=== PATIENT | male | born 1995 | race Caucasian/White ===

== ENCOUNTER 2018-05-29 11:48 | Emergency (ER) | payer OTHER ==
--- NOTE | 2018-05-29 12:01 | PDOC ---
History of Present Illness - General Chief Complaint: Shortness of Breath Stated Complaint: ALLERGIC REACTION Time Seen by Provider: 05/29/18 11:58 History Source: Patient Exam Limitations: No Limitations - History of Present Illness Initial Comments: 05/29/18 12:19 This is a 22 YOM with h/o multiple prior allergic reactions (to peanuts, chickpeas, and many other foods) who p/w periorbital swelling which started this morning about 11 am, 15 minutes after drinking a whey protein shake that he had never drank before. He additionally notes that shortly after the onset, he had SOB but this resolved 20 minutes prior to my evaluation. He also had minimal lightheadedness at the onset of symptoms but this quickly resolved. The patient notes that he has an EpiPen at home as well as Benadryl, but he was out of the home and did not have access to these at the onset. He denies any n/v/d, numbness, tingling, focal weakness, throat closing sensation, current headache or lightheadedness, rash, pruritis, or other symptoms. He has had about 20 allergic reactions in the past and this is a milder one on his spectrum. He has never needed to be intubated and has only needed to be brought to the ED one time previously, years ago. He usually takes Benadryl at home with resolution. Past History - Past Medical History Allergies/Adverse Reactions: Allergies Allergy/AdvReac Type Severity Reaction Status Date / Time Penicillins AdvReac Intermediate Difficulty Verified 05/29/18 12:06 Breathing PEANUTS Allergy Severe Difficulty Uncoded 05/29/18 12:06 Breathing CHICK PEAS Allergy Intermediate Difficulty Uncoded 05/29/18 12:06 Breathing Review of Systems - Review of Systems Able to Perform ROS?: Yes Constitutional: No: Chills, Fever, Unexplained wgt Loss HEENTM: Yes: Other (eyelid swelling). No: Nose Congestion, Throat Pain Respiratory: Yes: Shortness of Breath (resolved). No: Cough, Wheezing Cardiac (ROS): Yes: Lightheadedness (resolved). No: Chest Pain, Palpitations ABD/GI: No: Constipated, Diarrhea, Nausea, Vomiting : No: Burning, Dysuria Musculoskeletal: No: Back Pain, Neck Pain Integumentary: No: Bruising, Rash Neurological: No: Headache, Numbness, Tingling, Weakness, Dizziness Endocrine: No: Unexplained Weight Gain, Unexplained Weight Loss *Physical Exam - Physical Exam General Appearance: Yes: Nourished, Appropriately Dressed, Other (awake, alert, oriented, answering appropriately, obvious periorbital swelling). No: Apparent Distress HEENT: positive: EOMI, LUCHO, Normal Voice, Hearing Grossly Normal, Other (mild periorbital swelling bilaterally superiorly and inferiorly). negative: Scleral Icterus (R), Scleral Icterus (L), Nasal Congestion Neck: positive: Trachea midline, Supple. negative: Tender, Rigid Respiratory/Chest: positive: Lungs Clear, Normal Breath Sounds. negative: Respiratory Distress, Crackles, Rhonchi, Stridor, Wheezing Cardiovascular: positive: Regular Rhythm, S1, S2, Bradycardia. negative: JVD, Murmur Gastrointestinal/Abdominal: positive: Normal Bowel Sounds, Flat, Soft. negative : Tender, Organomegaly, Pulsatile Mass, Guarding Musculoskeletal: positive: Normal Inspection. negative: Decreased Range of Motion, Vertebral Tenderness Extremity: positive: Normal Capillary Refill, Normal Inspection, Normal Range of Motion. negative: Tender, Cyanosis Integumentary: positive: Normal Color, Dry, Warm. negative: Erythema, Hives, Rash, Bruising Neurologic: positive: composite mechanic II-XII NML intact (grossly), Fully Oriented, Alert, Normal Mood/Affect, Normal Response, Motor Strength 5/5 Medical Decision Making - Medical Decision Making 05/29/18 12:38 Pt p/w apparent allergic reaction. Initial Vital Signs Temp Pulse Resp BP Pulse Ox 98.4 F 68 18 119/71 96 05/29/18 11:57 05/29/18 11:57 05/29/18 11:57 05/29/18 11:57 05/29/18 11:57 Exam: As noted in Physical Exam section. DDX IBNLT: allergic rxn/angioedema, anaphylaxis, contact dermatitis, [employer], RPA, laryngitis, tracheitis, tonsillitis esophagitis, etc. W/U ordered: None TX ordered: Benadryl PO (Pt refuses other meds at this time) Reassessment: Patient feels much improved, repeat heart/lung/skin exam unchanged except improving periorbital edema. Vital Signs Temperature 97.9 F 05/29/18 13:24 Pulse Rate 50 L 05/29/18 13:24 Respiratory Rate 18 05/29/18 13:24 Blood Pressure 136/54 05/29/18 13:24 O2 Sat by Pulse Oximetry (%) 99 05/29/18 13:24 DISCHARGE The Pt has gotten significant relief of symptoms with ED medications. Workup is not concerning for emergency-level pathology at this time. I am not concerned for anaphylaxis or life-threatening angioedema or other reaction. The Pt is appropriate for discharge with close outpatient follow up. They are comfortable with this plan and will follow up with their PCP in 1-3 days. They have an EpiPen and Benadryl at home and are counseled to keep these on their person at all times. Specific return precautions are discussed and they will come back to the ER if necessary. *DC/Admit/Observation/Transfer Diagnosis at time of Disposition: Allergic reaction Qualifiers: Encounter type: initial encounter Qualified Code(s): T78.40XA - Allergy, unspecified, initial encounter - Discharge Dispostion Disposition: HOME Condition at time of disposition: Stable Decision to Admit order: No - Referrals - Patient Instructions Additional Instructions: You were seen in the ER for an allergic reaction. We did an exam and gave you medications to control your symptoms, which improved while you were here in the ER. After our assessment, we do not believe you are having a medical emergency at this time, and we believe you are safe to go home. Please keep your EpiPen with you at all times, which you should take only if you get throat closing sensation, difficulty breathing, lip swelling, vomiting, or other signs of severe allergic reaction. Please also keep Benadryl with you at all times. Please follow up with your regular PCP in 1-3 days. Call their clinic, tell them you were seen in the ER, and tell them you need a follow-up. If you have any new or worsening symptoms, especially increasing pain and redness to the area or other signs of infection like fever), please come back to the ER at any time (24 hours a day). If you are having severe or life threatening symptoms, or symptoms that make it unsafe to drive or have someone drive you, please call 911. - Post Discharge Activity
[2018-05-29 12:03] VITALS: BMI 30.4
[2018-05-29] MEDS ORDERED: diphenhydrAMINE HCL 25 MG CAPSULE (FP) PO ONE ×2 (12:09→12:19)
[2018-05-29] MEDS ORDERED: RANITIDINE HCL 150 MG TABLET (FP) PO ONE (12:09)
--- NOTE | 2018-05-29 12:40 | PDOC ---
Attending Attestation - HPI HPI: 05/29/18 13:07 The patient is a 22 year old male with a significant past medical history of multiple allergic reactions who presents to the ER with an allergic reaction approximately 20 minutes after taking a whey protein shake. Patient reports he has never had this protein shake before. Patient noticed significant periorbital swelling prompting him to come to the ER for PO benadryl. Patient is also complaining of mild shortness of breath and dizziness which have resolved on its own. Patient states he has had allergic reactions in the past that typically resolve after PO benadryl and epipen, but he did not have them with him today. The patient denies chest pain, shortness of breath, headache, and dizziness. Denies fever, chills, nausea, vomit, diarrhea, and constipation. Denies dysuria, frequency, urgency, and hematuria. Allergies: NKA Past surgical history: None reported. Social history: No reported alcohol, drug, or cigarette use. <Savannah eBnton - Last Filed: 05/29/18 13:07> - Resident Resident Name: Jennifer Gibbons - ED Attending Attestation I have performed the following: I have examined & evaluated the patient, The case was reviewed & discussed with the resident, I agree w/resident's findings & plan, Exceptions are as noted - Physicial Exam PE: GENERAL: Awake, alert, and fully oriented, in no acute distress HEAD: No signs of trauma EYES: PERRLA, EOMI, sclera anicteric, conjunctiva clear. +Mild periorbital edema. ENT: Auricles normal inspection, hearing grossly normal, nares patent, oropharynx clear without exudates. Moist mucosa. Airway patent. NECK: Normal ROM, supple, no lymphadenopathy, JVD, or masses LUNGS: Breath sounds equal, clear to auscultation bilaterally. No wheezes, and no crackles. Speaking full sentences. HEART: Regular rate and rhythm, normal S1 and S2, no murmurs, rubs or gallops ABDOMEN: Soft, nontender, normoactive bowel sounds. No guarding, no rebound. No masses EXTREMITIES: Normal range of motion, no edema. No clubbing or cyanosis. No cords, erythema, or tenderness NEUROLOGICAL: Cranial nerves II through XII grossly intact. Normal speech, normal gait SKIN: Warm, Dry, normal turgor, no rashes or lesions noted. - Medical Decision Making Pt with history of food allergies, presents with allergic reaction after having a protein shake. We recommended obs in ED as he had respiratory symptoms, however, he refused ED obs. Observed for 1.5 hrs in ED, no airway symptoms ( symptoms resolved prior to arrival). Declined steroids. <Pam Garcia - Last Filed: 05/29/18 17:06>
[2018-05-29 13:25] VITALS: BP 136/54; PULSE 50; TEMP 97.9
== END 2018-05-29 13:24 | disposition home or self-care (01) ==
LOC: JER 11:48
DX: T78.40XA Allergy, unspecified, initial encounter (principal); Z88.0 Allergy status to penicillin; Z91.010 Allergy to peanuts; Z91.018 Allergy to other foods
CPT/HCPCS: 99283-25

== ENCOUNTER 2020-09-19 15:57 | Emergency (ER) | payer OTHER ==
[2020-09-19 16:10] VITALS: BP 130/82; PULSE 87; TEMP 99.2; BMI 30.5
[2020-09-19] MEDS ORDERED: ACETAMINOPHEN 325 MG TABLET (FP) PO ONE (16:45)
[2020-09-19] MEDS ORDERED: ACETAMINOPHEN 325 MG TABLET (FP) ONE (16:58)
[2020-09-19] MEDS ORDERED: traMADol HCL 50 MG TABLET PO ONE (17:38)
[2020-09-19] MEDS ORDERED: traMADol HCL 50 MG TABLET ONE (17:57)
== END 2020-09-19 18:42 | disposition home or self-care (01) ==
LOC: FER 15:57
DX: S02.2XXA Fracture of nasal bones, initial encounter for closed fracture (principal); S02.85XA Fracture of orbit, unspecified, initial encounter for closed fracture; Y04.0XXA Assault by unarmed brawl or fight, initial encounter
CPT/HCPCS: 70450-TC; 70486-TC; 99285-25

== ENCOUNTER 2020-12-19 18:21 | Inpatient (IN) | payer OTHER ==
[2020-12-19 18:40] VITALS: BMI 32.8
[2020-12-19] MEDS ORDERED: hydrOXYzine PAMOATE 25 MG CAPSULE (FP) PO PRN (19:40)
[2020-12-19] MEDS ORDERED: MAGNESIUM HYDROX 2400MG/30ML ORAL SUSPENSION 30 ML CUP PO PRN (19:40)
[2020-12-19] MEDS ORDERED: ACETAMINOPHEN 325 MG TABLET (FP) PO PRN ×2 (19:40)
[2020-12-19] MEDS ORDERED: MENTHOL/PHENOL 1 EACH UD MM PRN (19:40)
[2020-12-19] MEDS ORDERED: MAGNESIUM CITRATE 300 ML BOTTLE PO PRN (19:40)
[2020-12-19] MEDS ORDERED: DICYCLOMINE HCL 10 MG CAPSULE PO PRN (19:40)
[2020-12-19] MEDS ORDERED: BISMUTH SUBSALICYLATE 524 MG/30 ML UD PO PRN (19:40)
[2020-12-19] MEDS ORDERED: IBUPROFEN 400 MG TABLET (FP) PO PRN (19:40)
[2020-12-19] MEDS ORDERED: P-EPHED 60MG/TRIPROLIDI 2.5MG TABLET PO PRN (19:40)
[2020-12-19] MEDS ORDERED: NICOTINE POLACRILEX 2 MG GUM BUC PRN (19:40)
[2020-12-19] MEDS ORDERED: ONDANSETRON *ODT* 4 MG TABLET SL PRN (19:40)
[2020-12-19] MEDS ORDERED: MAG HYDROX/AL HYDROX/SIMETH 30 ML UNIT-DOSE CUP PO PRN (19:40)
[2020-12-19] MEDS ORDERED: METHOCARBAMOL 500 MG TABLET PO PRN (19:40)
[2020-12-19] MEDS ORDERED: cloNIDine HCL 0.1 MG TABLET PO PRN (19:46)
[2020-12-19] MEDS ORDERED: diphenhydrAMINE HCL 25 MG CAPSULE (FP) PO ONE (19:47)
[2020-12-19] MEDS ORDERED: THIAMINE HCL 100 MG TABLET (FP) PO SCH (22:00)
[2020-12-19] MEDS ORDERED: MELATONIN 5 MG TABLETS PO SCH (22:00)
[2020-12-20] MEDS ORDERED: PRENATAL VITAMINS W/ FOLIC ACID TABLET (FP) PO SCH (10:00)
[2020-12-20 10:49] LABS: HEMATOCRIT 33.7 % (35.4-49); HEMOGLOBIN 11.4 GM/dL (11.7-16.9); MCH 29.7 pg (25.7-33.7); MCHC 33.7 g/dl (32.0-35.9); MEAN CELL VOLUME 88.1 fl (80-96); MEAN PLT VOLUME 9.4 fl (7.5-11.1); PLATELET COUNT 169 K/MM3 (134-434); RBC 3.82 M/mm3 (4.00-5.60); RDW 14.2 % (11.9-15.9); WHITE BLOOD COUNT 4.6 K/mm3 (4.0-10.0)
[2020-12-20 10:53] LABS: POTASSIUM 4.2 mmol/L (3.5-5.1)
[2020-12-20 11:07] LABS: CALCIUM 8.4 mg/dL (8.5-10.1)
[2020-12-20 11:08] LABS: ALBUMIN 2.9 g/dl (3.4-5.0); BLOOD UREA NITROGEN 7.5 mg/dL (7-18)
[2020-12-20 11:11] LABS: CREATININE 0.7 mg/dL (0.55-1.3)
[2020-12-20 11:13] LABS: BILIRUBIN,TOTAL 0.7 mg/dL (0.2-1); TOT PROT 5.4 g/dl (6.4-8.2)
[2020-12-20 14:36] VITALS: BP 135/75; PULSE 70; TEMP 97.9
== END 2020-12-20 16:55 | disposition home or self-care (01) | DRG 773 ==
LOC: YASAS 18:21 → Y3N 19:59 → UNDOADMIN 19:59
PROVIDERS: ADMIT Allergy & Immunology; ATTEND Allergy & Immunology
PROC: HZ2ZZZZ Detoxification Services for Substance Abuse Treatment (ICD-10-PCS; principal; 2020-12-19)
DX: F11.23 Opioid dependence with withdrawal (principal); F13.20 Sedative, hypnotic or anxiolytic dependence, uncomplicated; F17.210 Nicotine dependence, cigarettes, uncomplicated; F19.282 Other psychoactive substance dependence with psychoactive substance-induced sleep disorder; F19.280 Other psychoactive substance dependence with psychoactive substance-induced anxiety disorder; F19.24 Other psychoactive substance dependence with psychoactive substance-induced mood disorder; F41.9 Anxiety disorder, unspecified; Z88.0 Allergy status to penicillin; Z91.010 Allergy to peanuts; Z91.018 Allergy to other foods
CPT/HCPCS: 36415; 80053; 85027; 86780; C9803; U0003; U0005

== ENCOUNTER 2021-01-23 20:51 | Emergency (ER) | payer OTHER ==
[2021-01-23 21:03] VITALS: BP 127/84; PULSE 73; TEMP 99.5; BMI 28.8
[2021-01-23 21:51] LABS: BASO % 2.9 % (0-2.0); EOS % 7.8 % (0-4.5); HEMATOCRIT 40.5 % (35.4-49); HEMOGLOBIN 13.3 GM/dl (11.7-16.9); LYMPH % 32.4 % (8-40); MCH 28.4 pg (25.7-33.7); MCHC 32.8 g/dl (32.0-35.9); MEAN CELL VOLUME 86.5 fl (80-96); MEAN PLT VOLUME 8.1 fl (7.5-11.1); MONO % 7.3 % (3.8-10.2); NEUT % 49.6 % (42.8-82.8); PLATELET COUNT 262 K/MM3 (134-434); RBC 4.68 M/mm3 (4.00-5.60); RDW 12.6 % (11.9-15.9); WHITE BLOOD COUNT 5.2 K/mm3 (4.0-10.8)
[2021-01-23 22:02] LABS: ALBUMIN 4.4 g/dl (3.4-5.0); BILIRUBIN,TOTAL 0.5 mg/dl (0.2-1); CALCIUM 9.8 mg/dl (8.5-10); TOT PROT 7.2 g/dl (6.4-8.2)
[2021-01-25 18:12] LABS: HEP B CORE AB, TOT Negative (Negative)
== END 2021-01-23 23:03 | disposition home or self-care (01) ==
LOC: FER 20:51
DX: R22.42 Localized swelling, mass and lump, left lower limb (principal); R22.41 Localized swelling, mass and lump, right lower limb
CPT/HCPCS: 36415; 80053; 81003; 85025; 86704; 86706; 86707; 86708; 86709; 87340; 93970-TC; 99284-25

== ENCOUNTER 2021-12-31 19:38 | Emergency (ER) | payer OTHER ==
[2021-12-31 20:19] VITALS: BP 137/71; PULSE 70; TEMP 99; BMI 31.3
[2021-12-31] MEDS ORDERED: clonazePAM 0.5 MG TABLET PO ONE (20:24)
[2021-12-31] MEDS ORDERED: clonazePAM 0.5 MG TABLET ONE (20:26)
== END 2021-12-31 20:51 | disposition home or self-care (01) ==
LOC: FER 19:38
DX: F13.20 Sedative, hypnotic or anxiolytic dependence, uncomplicated (principal); F11.20 Opioid dependence, uncomplicated
CPT/HCPCS: 99283-25

== ENCOUNTER 2023-09-07 14:12 | Emergency (ER) | payer OTHER ==
[2023-09-07 14:25] VITALS: BP 124/79; PULSE 91; RESP 20; TEMP 98.6; BMI 25.0
[2023-09-07] MEDS ORDERED: SODIUM CHLORIDE 1,000 ML IV ONE (15:24)
[2023-09-07] MEDS ORDERED: ONDANSETRON 4 MG/2 ML VIAL IVPB ONE (15:25)
[2023-09-07] MEDS ORDERED: FAMOTIDINE 20 MG/50 ML IVPB 20 MG in PREMIX 50 IVPB ONE (15:25)
[2023-09-07] MEDS ORDERED: ONDANSETRON 4 MG/2 ML VIAL ONE (15:46)
[2023-09-07 15:47] LABS: BASO % 0.2 % (0-2.0); EOS % 0.1 % (0-4.5); HEMATOCRIT 49.5 % (35.4-49); HEMOGLOBIN 16.6 GM/dL (11.7-16.9); LYMPH % 10.5 % (8-40); MCHC 33.5 g/dl (32.0-35.9); MEAN CELL VOLUME 83.7 fl (80-96); MONO % 6.5 % (3.8-10.2); NEUT % 82.7 % (42.8-82.8); PLATELET COUNT 213 10^3/uL (134-434); RBC 5.91 M/mm3 (4.00-5.60); RDW 13.7 % (11.9-15.9); WHITE BLOOD COUNT 11.5 K/mm3 (4.0-10.0)
[2023-09-07] MEDS ORDERED: FAMOTIDINE 20 MG/50 ML IVPB 20 MG/50 ML MG IVPB ONE (15:47)
[2023-09-07 16:08] LABS: CHLORIDE 108 mmol/L (98-107); POTASSIUM 3.6 mmol/L (3.5-5.1); SODIUM 143 mmol/L (136-145)
[2023-09-07 16:10] LABS: CALCIUM 10.3 mg/dL (8.5-10.1)
[2023-09-07 16:11] LABS: ALBUMIN 4.1 g/dl (3.4-5.0); ANION GAP 11 mmol/L (4-13); BLOOD UREA NITROGEN 17.6 mg/dL (7-18); CO2 25 mmol/L (21-32); GLUCOSE,RANDOM 101 mg/dL (74-106); MAGNESIUM 2.1 mg/dL (1.8-2.4)
[2023-09-07 16:14] LABS: PHOSPHOROUS 2.3 mg/dL (2.5-4.9); SGOT/AST 165 U/L (15-37); SGPT/ALT 54 U/L (13-61)
[2023-09-07 16:15] LABS: BILIRUBIN,TOTAL 0.6 mg/dL (0.2-1)
[2023-09-07 16:16] LABS: TOT PROT 7.6 g/dl (6.4-8.2)
[2023-09-07 16:17] LABS: ALK PHOS 81 U/L (45-117)
[2023-09-07] MEDS ORDERED: SODIUM CHLORIDE 0.9% 500 ML INFUS.BAG IV ONE (18:24)
== END 2023-09-07 21:40 | disposition home or self-care (01) ==
LOC: JER 14:12
PROC: 3E033GC Introduction of Other Therapeutic Substance into Peripheral Vein, Percutaneous Approach (ICD-10-PCS; principal; 2023-09-07)
PROC: 3E033GC Introduction of Other Therapeutic Substance into Peripheral Vein, Percutaneous Approach (ICD-10-PCS; 2023-09-07)
PROC: 3E0337Z Introduction of Electrolytic and Water Balance Substance into Peripheral Vein, Percutaneous Approach (ICD-10-PCS; 2023-09-07)
DX: R10.84 Generalized abdominal pain (principal); R11.2 Nausea with vomiting, unspecified; R20.2 Paresthesia of skin; F19.10 Other psychoactive substance abuse, uncomplicated
CPT/HCPCS: 36415; 70450-TC; 71045-TC-FY; 74177-TC; 80053; 80307; 82550; 82553; 83690; 83735; 84100; 85025; 93005; 93010; 99285-25; Q9967

== ENCOUNTER 2024-12-06 21:35 | Inpatient (IN) | payer OTHER ==
[2024-12-06] MEDS: SODIUM CHLORIDE 0.9% 500 ML INFUS.BAG IV ONE (22:12)
[2024-12-06 22:41] LABS: HEMATOCRIT 44.5 % (35.4-49); HEMOGLOBIN 14.7 GM/dL (11.7-16.9); MCH 28.1 pg (25.7-33.7); MCHC 33.1 g/dl (32.0-35.9); MEAN CELL VOLUME 85.1 fl (80-96); MEAN PLT VOLUME 8.7 fl (7.5-11.1); PLATELET COUNT 160 10^3/uL (134-434); RBC 5.24 M/mm3 (4.00-5.60); RDW 13.9 % (11.9-15.9); WHITE BLOOD COUNT 10.3 K/mm3 (4.0-10.0)
[2024-12-06 22:42] LABS: VENOUS BASE EXCESS -7.7 mmol/L (-2-2); VENOUS O2 SATURATION 76.7 % (70-80); VENOUS PCO2 60.9 mmHg (38-52)
[2024-12-06 22:47] LABS: VENOUS PH 7.173 (7.310-7.410)
[2024-12-06 22:59] LABS: POTASSIUM 4.7 mmol/L (3.5-5.1)
[2024-12-06 23:01] LABS: CALCIUM 8.6 mg/dL (8.5-10.1)
[2024-12-06 23:02] LABS: ALBUMIN 4.6 g/dl (3.4-5.0); BLOOD UREA NITROGEN 31.8 mg/dL (7-18)
[2024-12-06 23:05] LABS: CREATININE 2.4 mg/dL (0.55-1.3)
[2024-12-06 23:06] LABS: BILIRUBIN,TOTAL 0.7 mg/dL (0.2-1)
[2024-12-07] MEDS ORDERED: DOXYCYCLINE HYCLATE 100 MG VIAL ONE (00:35)
[2024-12-07] MEDS ORDERED: CEFTRIAXONE 1 G/50 ML PREMIX 50 ML IVPB ONE ×2 (00:35→22:59)
[2024-12-07] MEDS: SODIUM CHLORIDE 0.9% 500 ML INFUS.BAG IV ONE (01:01)
[2024-12-07] MEDS: CEFTRIAXONE 1,000 MG in DEXTROSE 5%-WATER - 50 ML IVPB ONE (01:01)
[2024-12-07 01:57] LABS: METHADONE, UR NEGATIVE (NEGATIVE); URINE BENZODIAZEPINES NEGATIVE (NEGATIVE)
[2024-12-07 01:58] LABS: URINE AMPHETAMINES NEGATIVE (NEGATIVE); URINE BARBITURATES NEGATIVE (NEGATIVE)
[2024-12-07 02:03] LABS: COCAINE, UR POSITIVE (NEGATIVE); OPIATES, URI POSITIVE (NEGATIVE); PHENCYCLIDINE,URINE POSITIVE (NEGATIVE)
[2024-12-07] MEDS: DOXYCYCLINE INJECTION 100 MG in DEXTROSE 5%-WATER 100 ML IVPB ONE (02:16)
[2024-12-07 02:29] LABS: EPI CELLS 11 /uL (0-25.1); HYALINE CASTS 16 /uL (0-3.1); PH,URINE 5.5 (5.0-8.0); URINE APPEARANCE CLEAR; URINE BACTERIA 9 /uL (0-1359); URINE BILIRUBIN NEGATIVE (NEGATIVE); URINE COLOR YELLOW; URINE GLUCOSE (UA) NEGATIVE (NEGATIVE); URINE KETONE 1+ (NEGATIVE); URINE LEUK ESTERASE NEGATIVE (NEGATIVE); URINE NITRITE NEGATIVE (NEGATIVE); URINE PROTEIN 1+ (NEGATIVE); URINE RBC 13 /uL (0-23.9); URINE UROBILINOGEN 0.2 mg/dL (0.2-1.0); URINE WBC 51 /uL (0-25.8)
[2024-12-07] MEDS ORDERED: LORazepam 2 MG/ML SDV VIAL ONE ×3 (03:27→08:57)
[2024-12-07] MEDS ORDERED: hydrOXYzine HCL 50 MG TABLET PO PRN (04:16)
[2024-12-07] MEDS: SODIUM CHLORIDE 1,000 ML IV STA (04:22)
[2024-12-07] MEDS: LORazepam 2 MG/ML SDV VIAL IVPUSH ONE (04:22)
[2024-12-07] MEDS ORDERED: NALOXONE (NYS OPIOID OVERDOSE PROGRAM) 4 MG/0.1 ML SPRAY NS PRN (04:45)
[2024-12-07] MEDS ORDERED: LORazepam 2 MG/ML SDV VIAL IVPUSH PRN ×2 (04:46→05:48)
[2024-12-07] MEDS ORDERED: BENZOCAINE/MENTHOL (CHLORASEPTIC ) LOZENGE MM PRN (04:47)
[2024-12-07] MEDS ORDERED: ONDANSETRON *ODT* 4 MG TABLET SL PRN (04:47)
[2024-12-07] MEDS ORDERED: BENZONATATE 200 MG CAPSULE PO PRN (04:47)
[2024-12-07] MEDS ORDERED: DICYCLOMINE HCL 10 MG CAPSULE PO PRN (04:47)
[2024-12-07] MEDS ORDERED: LOPERAMIDE HCL 2 MG CAPSULE PO PRN (04:47)
[2024-12-07] MEDS ORDERED: METHOCARBAMOL 500 MG TABLET PO PRN (04:47)
[2024-12-07] MEDS ORDERED: BISMUTH SUBSALICYLATE 524 MG/30 ML PO PRN (04:47)
[2024-12-07] MEDS ORDERED: ACETAMINOPHEN 325 MG TABLET (FP) PO PRN (04:47)
[2024-12-07] MEDS ORDERED: MAG HYDROX/AL HYDROX/SIMETH 30 ML UNIT-DOSE CUP PO PRN (04:47)
[2024-12-07] MEDS ORDERED: guaiFENesin 600 MG TABLET.ER (FP) PO PRN (04:47)
[2024-12-07] MEDS ORDERED: ONDANSETRON 4 MG/2 ML VIAL IVPUSH PRN (06:03)
[2024-12-07] MEDS: SODIUM CHLORIDE 1,000 ML IV SCH ×2 (06:13→18:13)
[2024-12-07] MEDS: HEPARIN NA (PORCINE) 5,000 UNITS/ML 1ML VIAL SQ SCH (06:14)
[2024-12-07] MEDS ORDERED: HEPARIN NA (PORCINE) 5,000 UNITS/ML 1ML VIAL ONE ×3 (06:15→22:44)
[2024-12-07] MEDS: LORazepam 2 MG/ML SDV VIAL IVPUSH PRN (06:56)
[2024-12-07] MEDS ORDERED: HALOPERIDOL LACTATE 5 MG/ML ONE (08:54)
[2024-12-07] MEDS: HALOPERIDOL LACTATE 5 MG/ML IM ONE (09:02)
[2024-12-07 09:58] LABS: HEMATOCRIT 38.6 % (35.4-49); HEMOGLOBIN 12.7 GM/dL (11.7-16.9); MCH 28.2 pg (25.7-33.7); MCHC 32.8 g/dl (32.0-35.9); MEAN PLT VOLUME 8.6 fl (7.5-11.1); PLATELET COUNT 132 10^3/uL (134-434); RBC 4.49 M/mm3 (4.00-5.60); RDW 13.9 % (11.9-15.9); WHITE BLOOD COUNT 7.5 K/mm3 (4.0-10.0)
[2024-12-07 10:21] LABS: POTASSIUM 4.3 mmol/L (3.5-5.1)
[2024-12-07 10:22] LABS: ALBUMIN 3.8 g/dl (3.4-5.0); BLOOD UREA NITROGEN 17.1 mg/dL (7-18)
[2024-12-07 10:23] LABS: CALCIUM 8.4 mg/dL (8.5-10.1)
[2024-12-07 10:25] LABS: MAGNESIUM 1.8 mg/dL (1.8-2.4)
[2024-12-07 10:26] LABS: CREATININE 1.1 mg/dL (0.55-1.3)
[2024-12-07 10:27] LABS: PHOSPHOROUS 2.4 mg/dL (2.5-4.9)
[2024-12-07 10:28] LABS: BILIRUBIN,TOTAL 0.5 mg/dL (0.2-1); TOT PROT 6.4 g/dl (6.4-8.2)
[2024-12-07 12:56] LABS: SYPHILIS W/ RPR CONF NON-REACTIVE (NONREACTIVE)
[2024-12-07 13:25] LABS: HCV DIAGNOSTIC IN-HOUSE W/RFLX NON-REACTIVE (NONREACTIVE)
[2024-12-07 13:26] LABS: HIV INTERPRETATION NEGATIVE (NEGATIVE)
[2024-12-07] MEDS: SODIUM PHOSPHATE - 15 MM in DEXTROSE 5%-WATER - 250 ML IVPB ONE (16:40)
[2024-12-07] MEDS ORDERED: MELATONIN 5 MG TABLETS ONE (22:44)
[2024-12-07] MEDS: MELATONIN 5 MG TABLETS PO SCH (22:51)
[2024-12-07] MEDS ORDERED: NAPH,MB-DB/K PH,MBDB POWDER PACKET ONE (22:59)
[2024-12-07] MEDS: NAPH,MB-DB/K PH,MBDB POWDER PACKET PO ONE (22:59)
[2024-12-07] MEDS: CEFTRIAXONE 1 G/50 ML PREMIX 50 ML IVPB ONE (23:00)
[2024-12-08] MEDS ORDERED: LORazepam 1 MG TABLET ONE ×2 (00:57→00:58)
[2024-12-08] MEDS: LORazepam 1 MG TABLET PO ONE (00:59)
[2024-12-08] MEDS ORDERED: hydrOXYzine PAMOATE 50 MG CAPSULE (FP) ONE (03:31)
[2024-12-08] MEDS: hydrOXYzine PAMOATE 25 MG CAPSULE (FP) PO PRN (03:34)
[2024-12-08] MEDS ORDERED: HEPARIN NA (PORCINE) 5,000 UNITS/ML 1ML VIAL ONE (05:53)
[2024-12-08 07:07] LABS: CHLORIDE 98 mmol/L (98-107); POTASSIUM 3.8 mmol/L (3.5-5.1); SODIUM 136 mmol/L (136-145)
[2024-12-08 07:15] LABS: ALBUMIN 3.5 g/dl (3.4-5.0); CALCIUM 8.3 mg/dL (8.5-10.1); GLUCOSE,RANDOM 87 mg/dL (74-106)
[2024-12-08 07:16] LABS: ANION GAP 5 mmol/L (4-13); CO2 32 mmol/L (21-32); MAGNESIUM 2.1 mg/dL (1.8-2.4)
[2024-12-08 07:18] LABS: CREATININE 0.7 mg/dL (0.55-1.3); SGOT/AST 70 U/L (15-37); SGPT/ALT 52 U/L (13-61)
[2024-12-08 07:20] LABS: BILIRUBIN,TOTAL 0.6 mg/dL (0.2-1); TOT PROT 6.2 g/dl (6.4-8.2)
[2024-12-08 07:21] LABS: ALK PHOS 62 U/L (45-117)
[2024-12-08 07:29] LABS: ABSOLUTE IMMATURE GRANULOCYTES 0.02 x10^3/uL (0.0-0.031); BASOPHILS # 0.02 x10^3/uL (0.01-0.08); EOSINOPHIL % 0.7 % (0.8-7.0); EOSINOPHILS # 0.06 x10^3/uL (0.04-0.54); HEMATOCRIT 36.1 % (40.1-51.0); HEMOGLOBIN 11.6 g/dL (13.7-17.5); MCHC 32.1 g/dl (32.3-36.5); MEAN CELL VOLUME 87.8 fl (79.0-92.2); MEAN PLT VOLUME 10.9 fl (9.4-12.4); MONOCYTE # 0.62 x10^3/uL (0.30-0.82); MONOCYTE % 7.6 % (5.3-12.2); PLATELET COUNT 128 x10^3/uL (163-337); RDW 13.1 % (11.9-15.3)
[2024-12-08] MEDS ORDERED: HALOPERIDOL LACTATE 5 MG/ML IM PRN (09:45)
[2024-12-08] MEDS ORDERED: CEFTRIAXONE 1,000 MG in DEXTROSE 5%-WATER - 50 ML IVPB SCH (10:00)
[2024-12-08] MEDS: DOXYCYCLINE INJECTION 100 MG in DEXTROSE 5%-WATER 100 ML IVPB SCH (10:30)
[2024-12-08] MEDS ORDERED: CEFTRIAXONE 1 G/50 ML PREMIX 50 ML IVPB ONE (11:19)
[2024-12-08] MEDS ORDERED: DOXYCYCLINE HYCLATE 100 MG VIAL ONE (11:25)
[2024-12-08] MEDS: CEFTRIAXONE 1 G/50 ML PREMIX 50 ML IVPB SCH (11:35)
[2024-12-08] MEDS ORDERED: QUEtiapine FUMARATE 200 MG TABLET PO SCH (18:00)
[2024-12-08] MEDS: QUEtiapine FUMARATE 100 MG TABLET (FP) PO SCH (18:14)
[2024-12-08 19:49] VITALS: BMI 41.3
[2024-12-08] MEDS: LORazepam 2 MG/ML SDV VIAL IVPUSH PRN (20:26)
[2024-12-09 07:58] LABS: ABSOLUTE IMMATURE GRANULOCYTES 0.01 x10^3/uL (0.0-0.031); BASOPHILS # 0.03 x10^3/uL (0.01-0.08); EOSINOPHIL % 2.8 % (0.8-7.0); EOSINOPHILS # 0.13 x10^3/uL (0.04-0.54); HEMATOCRIT 38.5 % (40.1-51.0); HEMOGLOBIN 12.5 g/dL (13.7-17.5); MCHC 32.5 g/dl (32.3-36.5); MEAN CELL VOLUME 86.1 fl (79.0-92.2); MEAN PLT VOLUME 10.2 fl (9.4-12.4); MONOCYTE # 0.37 x10^3/uL (0.30-0.82); PLATELET COUNT 151 x10^3/uL (163-337); RDW 12.6 % (11.9-15.3)
[2024-12-09 08:17] LABS: POTASSIUM 3.3 mmol/L (3.5-5.1)
[2024-12-09 08:21] LABS: ALBUMIN 3.6 g/dl (3.4-5.0); BLOOD UREA NITROGEN 6.6 mg/dL (7-18); CALCIUM 8.9 mg/dL (8.5-10.1); MAGNESIUM 2.2 mg/dL (1.8-2.4)
[2024-12-09 08:24] LABS: CREATININE 0.8 mg/dL (0.55-1.3)
[2024-12-09 08:26] LABS: TOT PROT 6.6 g/dl (6.4-8.2)
[2024-12-09] MEDS: QUEtiapine FUMARATE 100 MG TABLET (FP) PO SCH (09:13)
[2024-12-09] MEDS: POTASSIUM CHLORIDE ORAL LIQUID 20 MEQ/15 ML PO ONE (10:28)
[2024-12-09] MEDS: POTASSIUM CHLORIDE TABS 20 MEQ TABLET.ER (FP) PO ONE (10:29)
[2024-12-09] MEDS ORDERED: LORazepam 2 MG/ML SDV VIAL ONE ×2 (18:34→18:35)
[2024-12-09] MEDS: LORazepam 2 MG/ML SDV VIAL IM ONE (18:35)
[2024-12-09] MEDS: HALOPERIDOL LACTATE 5 MG/ML IM ONE (18:35)
[2024-12-09] MEDS ORDERED: LORazepam 2 MG/ML SDV VIAL IVPUSH PRN (18:44)
[2024-12-10 07:02] LABS: ABSOLUTE IMMATURE GRANULOCYTES 0.02 x10^3/uL (0.0-0.031); BASOPHILS # 0.03 x10^3/uL (0.01-0.08); EOSINOPHILS # 0.31 x10^3/uL (0.04-0.54); HEMATOCRIT 40.7 % (40.1-51.0); HEMOGLOBIN 13.2 g/dL (13.7-17.5); MCHC 32.4 g/dl (32.3-36.5); MEAN CELL VOLUME 85.9 fl (79.0-92.2); MONOCYTE # 0.25 x10^3/uL (0.30-0.82); MONOCYTE % 5.6 % (5.3-12.2); PLATELET COUNT 165 x10^3/uL (163-337); RDW 12.5 % (11.9-15.3)
[2024-12-10 07:08] LABS: HEMATOCRIT 40.5 % (40.1-51.0); HEMOGLOBIN 13.2 g/dL (13.7-17.5); MCHC 32.6 g/dl (32.3-36.5); MEAN CELL VOLUME 85.3 fl (79.0-92.2); PLATELET COUNT 166 x10^3/uL (163-337); RDW 12.4 % (11.9-15.3)
[2024-12-10 07:21] LABS: POTASSIUM 3.6 mmol/L (3.5-5.1)
[2024-12-10 07:33] LABS: CALCIUM 8.8 mg/dL (8.5-10.1)
[2024-12-10 07:34] LABS: ALBUMIN 3.6 g/dl (3.4-5.0); BLOOD UREA NITROGEN 9.9 mg/dL (7-18); MAGNESIUM 2.3 mg/dL (1.8-2.4)
[2024-12-10 07:36] LABS: BILIRUBIN,TOTAL 0.6 mg/dL (0.2-1); TOT PROT 6.4 g/dl (6.4-8.2)
[2024-12-10 07:37] LABS: CREATININE 0.8 mg/dL (0.55-1.3)
[2024-12-10] MEDS: LORazepam 2 MG/ML SDV VIAL IVPUSH SCH (09:55)
[2024-12-10] MEDS: LORazepam 2 MG/ML SDV VIAL IM SCH (15:35)
[2024-12-10] MEDS ORDERED: ACETAMINOPHEN 325 MG TABLET (FP) PO PRN (16:37)
[2024-12-10] MEDS ORDERED: BENZOCAINE/MENTHOL (CHLORASEPTIC ) LOZENGE MM PRN (16:37)
[2024-12-10] MEDS ORDERED: BISMUTH SUBSALICYLATE 524 MG/30 ML PO PRN (16:37)
[2024-12-10] MEDS ORDERED: DICYCLOMINE HCL 10 MG CAPSULE PO PRN (16:37)
[2024-12-10] MEDS ORDERED: hydrOXYzine PAMOATE 25 MG CAPSULE (FP) PO PRN (16:37)
[2024-12-10] MEDS ORDERED: ONDANSETRON 4 MG/2 ML VIAL IVPUSH PRN (16:37)
[2024-12-10] MEDS ORDERED: METHOCARBAMOL 500 MG TABLET PO PRN (16:37)
[2024-12-10] MEDS ORDERED: LOPERAMIDE HCL 2 MG CAPSULE PO PRN (16:37)
[2024-12-10] MEDS ORDERED: MAG HYDROX/AL HYDROX/SIMETH 30 ML UNIT-DOSE CUP PO PRN (16:37)
[2024-12-10] MEDS: QUEtiapine FUMARATE 100 MG TABLET (FP) PO SCH (18:16)
[2024-12-10] MEDS: MAGNESIUM HYDROX 2400MG/30ML ORAL SUSPENSION 30 ML CUP PO ONE (21:59)
[2024-12-10] MEDS: MELATONIN 5 MG TABLETS PO SCH (22:00)
[2024-12-10] MEDS: HEPARIN NA (PORCINE) 5,000 UNITS/ML 1ML VIAL SQ SCH (22:21)
[2024-12-11] MEDS: QUEtiapine FUMARATE 100 MG TABLET (FP) PO SCH (09:57)
[2024-12-11] MEDS: POLYETHYLENE GLYCOL (HEALTHYLAX) 3350 17 GM PACKET PO SCH (10:34)
[2024-12-11] MEDS: DOCUSATE SODIUM 100 MG CAPSULE (FP) PO SCH (10:34)
[2024-12-11 12:19] LABS: HEMATOCRIT 41.5 % (40.1-51.0); HEMOGLOBIN 13.6 g/dL (13.7-17.5); MCHC 32.8 g/dl (32.3-36.5); MEAN CELL VOLUME 83.7 fl (79.0-92.2); MEAN PLT VOLUME 10.1 fl (9.4-12.4); PLATELET COUNT 182 x10^3/uL (163-337); RDW 12.6 % (11.9-15.3)
[2024-12-11 12:40] LABS: POTASSIUM 3.8 mmol/L (3.5-5.1)
[2024-12-11 12:43] LABS: CALCIUM 9.1 mg/dL (8.5-10.1)
[2024-12-11 12:44] LABS: ALBUMIN 3.7 g/dl (3.4-5.0); BLOOD UREA NITROGEN 9.8 mg/dL (7-18)
[2024-12-11 12:47] LABS: CREATININE 0.9 mg/dL (0.55-1.3)
[2024-12-11 12:49] LABS: BILIRUBIN,TOTAL 0.5 mg/dL (0.2-1); TOT PROT 6.8 g/dl (6.4-8.2)
[2024-12-12] MEDS: PATIENT'S OWN MEDICATION (NON-FORMULARY) (Terbinafine Hcl [Terbinafine Hcl] 250 MG Tablet) PO SCH (09:37)
[2024-12-12 09:40] LABS: POTASSIUM 3.9 mmol/L (3.5-5.1)
[2024-12-12 09:48] LABS: ABSOLUTE IMMATURE GRANULOCYTES 0.06 x10^3/uL (0.0-0.031); BASOPHILS # 0.03 x10^3/uL (0.01-0.08); EOSINOPHIL % 4.3 % (0.8-7.0); EOSINOPHILS # 0.22 x10^3/uL (0.04-0.54); HEMOGLOBIN 14.7 g/dL (13.7-17.5); MCHC 33.4 g/dl (32.3-36.5); MEAN CELL VOLUME 83.7 fl (79.0-92.2); MEAN PLT VOLUME 9.8 fl (9.4-12.4); MONOCYTE # 0.33 x10^3/uL (0.30-0.82); MONOCYTE % 6.5 % (5.3-12.2); PLATELET COUNT 210 x10^3/uL (163-337); RDW 12.8 % (11.9-15.3)
[2024-12-12 10:06] LABS: CALCIUM 9.5 mg/dL (8.5-10.1)
[2024-12-12 10:07] LABS: BLOOD UREA NITROGEN 11.1 mg/dL (7-18); MAGNESIUM 2.4 mg/dL (1.8-2.4)
[2024-12-12 10:10] LABS: PHOSPHOROUS 3.7 mg/dL (2.5-4.9)
[2024-12-12 10:12] LABS: BILIRUBIN,TOTAL 0.7 mg/dL (0.2-1); TOT PROT 7.3 g/dl (6.4-8.2)
[2024-12-12 11:50] LABS: COCAINE, UR NEGATIVE (NEGATIVE); URINE AMPHETAMINES NEGATIVE (NEGATIVE); URINE BARBITURATES NEGATIVE (NEGATIVE); URINE BENZODIAZEPINES NEGATIVE (NEGATIVE)
[2024-12-12 11:51] LABS: METHADONE, UR NEGATIVE (NEGATIVE)
[2024-12-12 11:52] LABS: OPIATES, URI POSITIVE (NEGATIVE); PHENCYCLIDINE,URINE POSITIVE (NEGATIVE)
[2024-12-12] MEDS: METHIMAZOLE 5 MG TABLET PO SCH (13:17)
[2024-12-12] MEDS: HALOPERIDOL LACTATE 5 MG/ML IM PRN (22:25)
[2024-12-13 08:58] LABS: POTASSIUM 4.2 mmol/L (3.5-5.1)
[2024-12-13 09:45] LABS: BILIRUBIN,TOTAL 0.7 mg/dL (0.2-1)
[2024-12-13 09:52] LABS: TOT PROT 7.2 g/dl (6.4-8.2)
[2024-12-13 10:10] LABS: CALCIUM 9.5 mg/dL (8.5-10.1); MAGNESIUM 2.4 mg/dL (1.8-2.4)
[2024-12-13 10:22] LABS: PHOSPHOROUS 3.5 mg/dL (2.5-4.9)
[2024-12-13] MEDS: NICOTINE POLACRILEX 4 MG GUM BUC PRN (23:00)
[2024-12-15 11:32] LABS: EPI CELLS 3 /uL (0-25.1); HYALINE CASTS 0 /uL (0-3.1); URINE APPEARANCE CLEAR; URINE BACTERIA 2 /uL (0-1359); URINE BILIRUBIN NEGATIVE (NEGATIVE); URINE COLOR YELLOW; URINE GLUCOSE (UA) NEGATIVE (NEGATIVE); URINE KETONE TRACE (NEGATIVE); URINE LEUK ESTERASE NEGATIVE (NEGATIVE); URINE NITRITE NEGATIVE (NEGATIVE); URINE PROTEIN TRACE (NEGATIVE); URINE RBC 60 /uL (0-23.9); URINE UROBILINOGEN 0.2 mg/dL (0.2-1.0); URINE WBC 8 /uL (0-25.8)
[2024-12-15 16:42] VITALS: BP 113/58; PULSE 100; RESP 18; TEMP 98.2
== END 2024-12-15 18:49 | disposition short-term general hospital (02) | DRG 816 ==
LOC: JER 21:35 → JERBED 12-07 01:21 → J4W 12-08 15:34 → J6S 12-10 16:29
PROVIDERS: ADMIT Internal Medicine; ATTEND Internal Medicine
DX: T40.1X1A Poisoning by heroin, accidental (unintentional), initial encounter (principal); N17.9 Acute kidney failure, unspecified; G92.8 Other toxic encephalopathy; M62.82 Rhabdomyolysis; I50.9 Heart failure, unspecified; I24.89 Other forms of acute ischemic heart disease; I42.9 Cardiomyopathy, unspecified; E66.01 Morbid (severe) obesity due to excess calories; Z68.41 Body mass index [BMI] 40.0-44.9, adult; B37.0 Candidal stomatitis; E83.39 Other disorders of phosphorus metabolism; E83.51 Hypocalcemia; F19.10 Other psychoactive substance abuse, uncomplicated; T40.5X1A Poisoning by cocaine, accidental (unintentional), initial encounter; T40.711A Poisoning by cannabis, accidental (unintentional), initial encounter; Y92.89 Other specified places as the place of occurrence of the external cause; R74.01 Elevation of levels of liver transaminase levels; F41.9 Anxiety disorder, unspecified; E05.90 Thyrotoxicosis, unspecified without thyrotoxic crisis or storm; F32.A Depression, unspecified; E86.0 Dehydration; R00.0 Tachycardia, unspecified; Z91.51 Personal history of suicidal behavior
CPT/HCPCS: 36415; 70450-TC; 71045-TC-FY; 71250-TC; 76775-TC; 80053; 80178; 80307; 81003; 82550; 82553; 82570; 82607; 82728; 82803; 82962; 83605; 83735; 83930; 83935; 84100; 84300; 84425; 84439; 84443; 84479; 84481; 84484; 85025; 85027; 86780; 86803; 87086; 87389; 87491; 87591; 87635; 87661; 93005; 93010; 93306-TC; 99285-25; J1644